=== PATIENT | male | born 1960 | race Caucasian/White ===

== ENCOUNTER 2018-04-09 16:24 | Emergency (ER) | payer MEDICAID ==
[~2018-04-09] VITALS: Ht 172.7 cm; Wt 72.6 kg
[2018-04-09 16:38] VITALS: Ht 172.7 cm; Wt 72.6 kg
[2018-04-09 19:02] LABS: UA SPECIFIC GRAVITY >=1.030 (1.005-1.035); microscopic required? YES; urine erythrocyte 2+ (NEGATIVE)
[2018-04-09 19:45] VITALS: BP 119/67
== END 2018-04-09 19:45 | disposition home or self-care (01) ==
LOC: ED 16:24
PROVIDERS: Emergency Medicine
DX: N39.0 Urinary tract infection, site not specified (principal); N44.00 Torsion of testis, unspecified
CPT/HCPCS: 87491; 87591; J0696; J1885